=== PATIENT | male | born 1975 | race Caucasian/White ===

== ENCOUNTER 2020-02-10 18:35 | Emergency (ER) | payer OTHER ==
[~2020-02-10] VITALS: Ht 170.2 cm; Wt 72.1 kg
[~2020-02-10 18:35] MED LIST: SYNTHROID88 MCG PO
== END 2020-02-10 22:25 | disposition home or self-care (01) ==
LOC: ER 18:35
DX: R53.83 Other fatigue (principal); R07.89 Other chest pain; M54.89 Other dorsalgia; Z03.818 Encounter for observation for suspected exposure to other biological agents ruled out

== ENCOUNTER 2021-02-19 15:14 | Emergency (ER) | payer OTHER ==
[~2021-02-19] VITALS: Ht 170.2 cm; Wt 72.6 kg
[2021-02-19] MEDS ORDERED: ZITHROMAX500 MG PO (18:16)
[2021-02-19] MEDS ORDERED: BENZONATATE150 MG PO (18:16)
== END 2021-02-19 18:32 | disposition home or self-care (01) ==
LOC: ER 15:14
DX: J06.9 Acute upper respiratory infection, unspecified (principal); B34.9 Viral infection, unspecified; Z20.822 Contact with and (suspected) exposure to COVID-19

== ENCOUNTER → 2021-11-26 | Emergency (ER) | payer OTHER ==
[~2021-11-26] MED LIST changes: +BENZONATATE150 MG PO; +ZITHROMAX500 MG PO
== END | disposition left against medical advice (07) ==
LOC: ER 16:07
DX: Z53.21 Procedure and treatment not carried out due to patient leaving prior to being seen by health care provider (principal)